=== PATIENT | female | born 1935 | race Caucasian/White ===

== ENCOUNTER → 2018-11-10 | Outpatient (CLI) | payer MEDICARE ==
[~2018-11-10] MED LIST: ACET500T71 PO; ANTACID PO; ASPI-515 PO; CARV-39 PO; ESTRACE VAG CREAM VG; FLUT16SP2 NS; GABA300C10 PO; GABA600T7 PO; IRON PO; LISI-170 PO; MULTIVITAMIN PO; OMEP-110 PO; VITAMIN D3 PO; [UNRECOGNIZED DRUG - REMARK] IV
== END | disposition home or self-care (01) ==
LOC: CVU 08:03
PROVIDERS: ATTEND Internal Medicine Cardiovascular Disease
DX: I08.3 Combined rheumatic disorders of mitral, aortic and tricuspid valves (principal)
CPT/HCPCS: 93306

== ENCOUNTER → 2020-11-29 | Outpatient (CLI) | payer MEDICARE ==
[~2020-11-29] MED LIST changes: +ACET500T64 PO; -ACET500T71 PO; -ASPI-515 PO; +ASPI-963 PO
== END | disposition home or self-care (01) ==
LOC: CFH 13:37
PROVIDERS: ATTEND Internal Medicine Cardiovascular Disease
DX: I08.3 Combined rheumatic disorders of mitral, aortic and tricuspid valves (principal); I11.9 Hypertensive heart disease without heart failure
CPT/HCPCS: 93306; 93356